=== PATIENT | female | born 1995 | race Caucasian/White ===

== ENCOUNTER 2017-10-02 03:03 | Emergency (ER) | payer OTHER ==
[2017-10-02] MEDS ORDERED: predniSONE 20 MG TAB PO ONE (03:31)
[2017-10-02] MEDS ORDERED: FAMOTIDINE 20 MG TAB PO ONE (03:32)
--- NOTE | 2017-10-02 04:08 | EDPHY ---
H & P Stated Complaint: allergic reaction Time Seen by Provider: 10/02/17 03:49 HPI/ROS: HPI The patient presents with rash which she initially noticed on her right elbow and thought was related to a mosquito bite at about 10:00 p.m.. His however throughout the course of the night while she was at work she noticed more of the rash and it eventually spread throughout her arms, legs, trunk, neck. She took Benadryl, total of 50 mg. She thought she felt short of breath, however this subsided quickly. She has no prior history of similar. Over the last 5 days she has started minocycline for acne. She has no known allergies.. REVIEW OF SYSTEMS Constitutional: No fever, no chills. Eyes: No discharge. ENT: No sore throat. Cardiovascular: No chest pain, no palpitations. Respiratory: No cough, no shortness of breath. Gastrointestinal: No abdominal pain, no vomiting. Genitourinary: No hematuria. Musculoskeletal: No back pain. Skin: Positive for rashes. Neurological: No headache. PMHx: Healthy Soc Hx: [employer] student PHYSICAL General Appearance: Alert, no distress Eyes: Pupils equal and round no pallor or injection ENT, Mouth: Mucous membranes moist, posterior pharynx is unremarkable Respiratory: There are no retractions, lungs are clear to auscultation Cardiovascular: Regular rate and rhythm Gastrointestinal: Abdomen is soft and non-tender, no masses, bowel sounds normal Neurological: A&O, moves all extremities Skin: Warm and dry, urticarial rash throughout neck, back, abdomen, arms and legs Musculoskeletal: Neck is supple non tender Extremities: symmetrical, full range of motion Psychiatric: Patient is oriented X 3, there is no agitation Source: Patient Exam Limitations: No limitations - Personal History LMP (Females 10-55): 15-21 Days Ago Current Tetanus/Diphtheria Vaccine: Unsure Current Tetanus Diphtheria and Acellular Pertussis (TDAP): Unsure - Medical/Surgical History Hx Asthma: No Hx Chronic Respiratory Disease: No Hx Diabetes: No Hx Cardiac Disease: No Hx Renal Disease: No Hx Cirrhosis: No Hx Alcoholism: No Hx HIV/AIDS: No Hx Splenectomy or Spleen Trauma: No Other PMH: anxiety depression - Social History Smoking Status: Never smoked Constitutional: Initial Vital Signs Temperature (C) 36.7 C 10/02/17 03:08 Heart Rate 74 10/02/17 03:08 Respiratory Rate 16 10/02/17 03:08 Blood Pressure 127/87 H 10/02/17 03:08 O2 Sat (%) 97 10/02/17 03:08 O2 Delivery Mode Room Air Allergies/Adverse Reactions: No Known Allergies Allergy (Unverified 10/02/17 03:11) Home Medications: Medication Instructions Recorded Famotidine [Pepcid 20 MG (*)] 20 mg PO BID #30 tab 10/02/17 predniSONE [Prednisone] 40 mg PO DAILY 4 Days tablet 10/02/17 Medical Decision Making Differential Diagnosis: 22-year-old female presents with concern for allergic reaction, over last 6 hr she has developed rash throughout her extremities and torso. She had transient shortness of breath. She took Benadryl 50 mg. She recently started on minocycline for acne, has taken it for 5 days. She is not hypotensive, does not have vomiting, does not have wheezing on lung exam, posterior pharynx is unremarkable. I have considered urticaria, anaphylaxis, allergic reaction. In the emergency department, patient received famotidine and prednisone. This caused slight improvement of her symptoms. Plan to treat her with ongoing Benadryl, famotidine, prednisone until her rash improved. I suspect urticarial rash from minocycline. I have discussed the diagnosis and treatment plan with her. - Data Points Medications Given: Discontinued Medications Famotidine (Pepcid) 40 mg PO EDNOW ONE Stop: 10/02/17 03:33 Last Admin: 10/02/17 03:35 Dose: 40 mg Prednisone (Prednisone) 60 mg PO EDNOW ONE Stop: 10/02/17 03:32 Last Admin: 10/02/17 03:35 Dose: 60 mg Departure - Departure Disposition: Home, Routine, Self-Care Clinical Impression: Urticaria Condition: Good Instructions: Urticaria (ED) Additional Instructions: I believe your rash is an allergic reaction. This could be related to the minocycline that you have started taking. 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 For these hives I recommend you take Benadryl 25 mg every 6 hr. You should take the famotidine as prescribed twice a day. You should take prednisone once a day. You can stop all these medications once here rash has gone away. Please return to the emergency department if your worse in any way. Referrals: ANGELLA Blandon,. [Clinic] - As per Instructions Prescriptions: Famotidine [Pepcid 20 MG (*)] 20 mg PO BID #30 tab predniSONE [Prednisone] 40 mg PO DAILY 4 Days tablet
[2017-10-02 04:14] VITALS: BP 113/79
== END 2017-10-02 04:16 | disposition home or self-care (01) ==
DX: L50.9 Urticaria, unspecified (principal)
CPT/HCPCS: J7512